=== PATIENT | female | born 1960 | race Caucasian/White ===

== ENCOUNTER 2016-07-16 15:06 | Emergency (ER) | payer MEDICARE ==
[2016-07-16] MEDS ORDERED: ANTIVERT 25 MG PO ONE (15:41)
[2016-07-16] MEDS ORDERED: Sodium Chloride 0.9% 1000 ML 1,000 ML IV SCH (15:45)
--- NOTE | 2016-07-16 15:45 | ERPHSYRPT ---
- History of Present Illness Time Seen by Provider: 07/16/16 15:30 Historian: patient Exam Limitations: clinical condition Patient Subjective Stated Complaint: upper bilateral arm pain, dizziness and blurred vision for three days Triage Nursing Assessment: ambulated to room per self. skin w/d, color normal, resp easy. pt a/o times three, suarez without difficulty. 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 Physician History: PATIENT COMPLAINS OF DIZZINESS X 3 DAYS UPON AMBULATION, BLURRED VISION FOR 1 MONTH, ASSOCIATED WITH BILATERAL ARM PAIN. DENIES HEADACHE, NECK PAIN, CHEST PAIN OR DYSPNEA. Timing/Duration: day(s) Activities at Onset: none Quality: aching Location: other ([facility]) Chest Pain Radiation: no radiation Severity of Pain-Max: mild Severity of Pain-Current: mild Modifying Factors: Improves With: nothing Associated Symptoms: dizziness, other (BLURRED VISION) Prior Chest Pain/Cardiac Workup: no prior chest pain Nitro Today/Relief: no nitro taken today Aspirin Treatment Today: 81 mg x 4, provided by ED Allergies/Adverse Reactions: penicillin G Allergy (Intermediate, Verified 07/16/16 15:29) Hives sulfamethoxazole [From Bactrim] Allergy (Intermediate, Verified 07/16/16 15:29) Hives trimethoprim [From Bactrim] Allergy (Intermediate, Verified 07/16/16 15:29) Hives Home Medications: Hydrochlorothiazide 25 mg [hydroDIURIL 25 MG] 12.5 mg PO BID 06/18/16 [ History] Aspirin [[place] Aspirin] 81 mg PO 07/16/16 [History] Clonazepam 0.5 mg [Klonopin 0.5 MG] 0.5 mg PO HS 07/16/16 [History] Duloxetine HCl [Cymbalta] 60 mg PO TID 07/16/16 [History] Gabapentin [Gralise] 600 mg PO BID 07/16/16 [History] Hx Tetanus, Diphtheria Vaccination/Date Given: No Hx Influenza Vaccination/Date Given: No Hx Pneumococcal Vaccination/Date Given: No Immunizations Up to Date: No - Review of Systems Constitutional: No Symptoms, No Fever, No Chills Eyes: Double Vision Ears, Nose, & Throat: No Symptoms Respiratory: No Symptoms, No Cough, No Dyspnea Cardiac: No Symptoms, No Chest Pain, No Edema, No Syncope Abdominal/Gastrointestinal: No Symptoms, No Abdominal Pain, No Nausea, No Vomiting, No Diarrhea Genitourinary Symptoms: No Symptoms, No Dysuria Musculoskeletal: Arthralgias, No Back Pain, No Neck Pain Skin: No Rash Neurological: Dizziness, No Focal Weakness, No Sensory Changes Psychological: No Symptoms Endocrine: No Symptoms All Other Systems: Reviewed and Negative - Past Medical History Pertinent Past Medical History: Yes Cardiac History: Hypertension Musculoskeletal History: Arthritis GI Medical History: Gallbladder Disease, Irritable Bowel Psycho-Social History: Depression Female Reproductive Disorders: Breast Cancer - Past Surgical History Past Surgical History: Yes Gastrointestinal: Cholecystectomy Female Surgical History: Tubal Ligation, Lumpectomy - Social History Smoking Status: Current every day smoker How long have you smoked: YRS Exposure to second hand smoke: No Drug Use: none Patient Lives Alone: No - Nursing Vital Signs Temperature: 97.7 F Temperature Source: Oral Pulse Rate: 121 Respiratory Rate: 18 Pain Intensity: 8 - Physical Exam General Appearance: no apparent distress, alert Eye Exam: PERRL/EOMI, eyes nml inspection Ears, Nose, Throat Exam: normal ENT inspection, moist mucous membranes Neck Exam: normal inspection, non-tender, supple, full range of motion Respiratory Exam: normal breath sounds, lungs clear, No respiratory distress Cardiovascular Exam: regular rate/rhythm, normal heart sounds, tachycardia Gastrointestinal/Abdomen Exam: soft, normal bowel sounds, No tenderness, No mass Back Exam: normal inspection, No CVA tenderness, No vertebral tenderness Extremity Exam: normal inspection, normal range of motion Neurologic Exam: alert, oriented x 3, cooperative, normal mood/affect, sensation nml, No motor deficits Skin Exam: normal color, warm, dry SpO2 Interpretation: normal SpO2: 100 Oxygen Delivery: Room Air - Course EKG Interpreted by Me: RATE, Sinus Tach, NORMAL AXIS - Radiology Exams Chest X-ray Interpretation: Discussed w/ radiologist, Negative - CT Exams Head CT Interpretation: Discussed w/radiologist, No/Intracranial Hemorrhag Ordered Tests: Active Orders 24 hr Category Date Time Status Photographic Aide STAT Care 07/16/16 15:41 Active EKG-ER Only STAT Care 07/16/16 15:41 Active IV Insertion STAT Care 07/16/16 15:48 Active Orthostatic Vital Signs STAT Care 07/16/16 15:41 Active Visual Acuity STAT Care 07/16/16 15:44 Active CHEST 1 VIEW (PORTABLE) Stat Exams 07/16/16 15:41 Completed HEAD WITHOUT CONTRAST [CT] Stat Exams 07/16/16 15:41 Completed CBC W DIFF Stat Lab 07/16/16 15:40 Completed CMP Stat Lab 07/16/16 15:40 Completed MAGNESIUM Stat Lab 07/16/16 15:40 Completed PT INR [PROTIME WITH INR] Stat Lab 07/16/16 15:40 Completed TROPONIN Stat Lab 07/16/16 15:40 Completed UA Stat Lab 07/16/16 16:40 Completed Urine Triage Profile Stat Lab 07/16/16 16:40 Completed Medication Summary Generic Name Dose Route Start Last Admin Trade Name Freq PRN Reason Stop Dose Admin Sodium Chloride 1,000 mls @ 200 mls/hr 07/16/16 15:45 07/16/16 15:59 Sodium Chloride 0.9% 1000 Ml IV 08/15/16 15:44 200 mls/hr .Q5H ALMAZ Administration Sodium Chloride 1,000 mls @ 500 mls/hr 07/16/16 17:22 07/16/16 17:38 Sodium Chloride 0.9% 1000 Ml IV 07/16/16 19:21 500 mls/hr .Q2H STA Administration Nitroglycerin 0.4 mg 07/16/16 15:58 07/16/16 16:08 Nitrostat 0.4 Mg Tablet SL 08/15/16 15:57 0.4 mg PRN PRN Administration CHEST PAIN Discontinued Medications Generic Name Dose Route Start Last Admin Trade Name Freq PRN Reason Stop Dose Admin Aspirin 324 mg 07/16/16 15:59 07/16/16 16:07 Baby Aspirin 81 Mg Chew PO 07/16/16 16:00 324 mg STAT ONE Administration Sodium Chloride Confirm 07/16/16 15:47 Sodium Chloride 0.9% 1000 Ml Administered 07/16/16 15:48 Dose 1,000 mls @ ud .ROUTE .STK-MED ONE Sodium Chloride Confirm 07/16/16 17:33 Sodium Chloride 0.9% 1000 Ml Administered 07/16/16 17:34 Dose 1,000 mls @ ud .ROUTE .STK-MED ONE Magnesium Sulfate 1 gm 07/16/16 16:38 07/16/16 16:46 Magnesium Sulfate 1 Gm/2 Ml Vial IV 07/16/16 16:39 1 gm STAT ONE Administration Magnesium Sulfate Confirm 07/16/16 16:43 Magnesium Sulfate 1 Gm/2 Ml Vial Administered 07/16/16 16:44 Dose 1 gm .ROUTE .STK-MED ONE Meclizine HCl 25 mg 07/16/16 15:41 07/16/16 15:59 Antivert 25 Mg PO 07/16/16 15:42 25 mg STAT ONE Administration Meclizine HCl Confirm 07/16/16 15:47 Antivert 25 Mg Administered 07/16/16 15:48 Dose 25 mg .ROUTE .[facility] ONE Lab/Rad Data: Laboratory Result Diagrams 07/16/16 15:40 07/16/16 15:40 Laboratory Results 07/16/16 07/16/16 07/16/16 Range/Units 16:40 16:40 15:40 WBC (4.0-10.5) K/mm3 RBC (4.1-5.4) M/mm3 Hgb (12.0-16.0) gm/dl Hct (35-47) % MCV (78-100) fl MCH (26-32) pg MCHC (32-36) g/dl RDW (11.5-14.0) % Plt Count (150-450) K/mm3 MPV (6-9.5) fl Gran % (36.0-66.0) % Lymphocytes % (24.0-44.0) % Monocytes % (0.0-12.0) % Eosinophils % (0.00-5.0) % Basophils % (0.0-0.4) % Basophils # (0-0.4) INR 0.98 (0.8-3.0) Sodium (136-145) mEq/L Potassium (3.5-5.1) mEq/L Chloride (98-107) mEq/L Carbon Dioxide (21-32) mEq/L Anion Gap (5-15) MEQ/L BUN (9-20) mg/dL Creatinine (0.55-1.30) mg/dl Estimated GFR ML/MIN Glucose (70-110) MG/DL Calcium (8.5-10.1) mg/dL Magnesium (1.8-2.4) mg/dL Total Bilirubin (0.2-1.0) mg/dL AST (15-37) U/L ALT (12-78) U/L Alkaline Phosphatase (46-116) U/L Troponin I (0.000-0.056) ng/ml Serum Total Protein (6.4-8.2) gm/dL Albumin (3.4-5.0) g/dL Ur Collection Type VOID Urine Color YELLOW (YELLOW) Urine Appearance CLEAR (CLEAR) Urine pH 7.0 (5-6) Ur Specific [place] 1.015 (1.005-1.025) Urine Protein NEGATIVE (Negative) Urine Glucose (UA) NEGATIVE (NEGATIVE) mg/dL Urine Ketones NEGATIVE (NEGATIVE) Urine Nitrite NEGATIVE (NEGATIVE) Urine Bilirubin NEGATIVE (NEGATIVE) Urine Urobilinogen 0.2 (0-1) mg/dL Urine WBC (Auto) NEGATIVE (NEGATIVE) Urine RBC (Auto) NEGATIVE (0-5) Ruben/ul Urine Opiates Level NEG. (NEGATIVE) Ur Methadone NEG. (NEGATIVE) Urine Barbiturates NEG. (NEGATIVE) Ur Phencyclidine (PCP) NEG. (NEGATIVE) Urine Amphetamine NEG. (NEGATIVE) U Benzodiazepine Level NEG. (NEGATIVE) Urine Cocaine NEG. (NEGATIVE) Urine Marijuana (THC) NEG. (NEGATIVE) Specimen Received 07/16/16 1640 07/16/16 07/16/16 Range/Units 15:40 15:40 WBC 8.5 (4.0-10.5) K/mm3 RBC 4.89 (4.1-5.4) M/mm3 Hgb 14.7 (12.0-16.0) gm/dl Hct 43.6 (35-47) % MCV 89.2 (78-100) fl MCH 30.1 (26-32) pg MCHC 33.7 (32-36) g/dl RDW 12.8 (11.5-14.0) % Plt Count 326 (150-450) K/mm3 MPV 10.5 H (6-9.5) fl Gran % 56.3 (36.0-66.0) % Lymphocytes % 33.3 (24.0-44.0) % Monocytes % 7.8 (0.0-12.0) % Eosinophils % 2.1 (0.00-5.0) % Basophils % 0.5 (0.0-0.4) % Basophils # 0.04 (0-0.4) INR (0.8-3.0) Sodium 143 (136-145) mEq/L Potassium 3.9 (3.5-5.1) mEq/L Chloride 103 (98-107) mEq/L Carbon Dioxide 29.1 (21-32) mEq/L Anion Gap 14.6 (5-15) MEQ/L BUN 10 (9-20) mg/dL Creatinine 0.58 (0.55-1.30) mg/dl Estimated GFR > 60 ML/MIN Glucose 91 (70-110) MG/DL Calcium 9.7 (8.5-10.1) mg/dL Magnesium 1.4 L (1.8-2.4) mg/dL Total Bilirubin 0.4 (0.2-1.0) mg/dL AST 15 (15-37) U/L ALT 10 L (12-78) U/L Alkaline Phosphatase 82 (46-116) U/L Troponin I < 0.017 (0.000-0.056) ng/ml Serum Total Protein 7.9 (6.4-8.2) gm/dL Albumin 4.3 (3.4-5.0) g/dL Ur Collection Type Urine Color (YELLOW) Urine Appearance (CLEAR) Urine pH (5-6) Ur Specific [place] (1.005-1.025) Urine Protein (Negative) Urine Glucose (UA) (NEGATIVE) mg/dL Urine Ketones (NEGATIVE) Urine Nitrite (NEGATIVE) Urine Bilirubin (NEGATIVE) Urine Urobilinogen (0-1) mg/dL Urine WBC (Auto) (NEGATIVE) Urine RBC (Auto) (0-5) Ruben/ul Urine Opiates Level (NEGATIVE) Ur Methadone (NEGATIVE) Urine Barbiturates (NEGATIVE) Ur Phencyclidine (PCP) (NEGATIVE) Urine Amphetamine (NEGATIVE) U Benzodiazepine Level (NEGATIVE) Urine Cocaine (NEGATIVE) Urine Marijuana (THC) (NEGATIVE) Specimen Received - Progress Progress: improved, re-examined Progress Note: 07/16/16 16:51 PATIENT GIVEN ASA 81MG X 4, NTG SL 0.4MG, MG SULFATE 1GM IVPB FOR MAGNESIUM-1.4 , ANTIVERT 25MG ORALLY. Counseled pt/family regarding: lab results, diagnosis, need for follow-up, rad results - Departure Time of Disposition: 18:10 Departure Disposition: Home Clinical Impression: ACUTE LABYINTHITIS, HYPOMAGNESEMIA Condition: Stable Critical Care Time: No Referrals: Provider,Unknown [Primary Care Provider] - Additional Instructions: BEGIN ANTIVERT 25MG EVERY 8 HOURS FOR DIZZINESS. MAGNESIUM OXIDE 400MG TWICE DAILY FOR 1 WEEK. CONSULT YOUR FAMILY PHYSICIAN FOR EVALUATION IN 1 WEEK.
[2016-07-16] MEDS ORDERED: ANTIVERT 25 MG ONE (15:47)
[2016-07-16] MEDS ORDERED: Sodium Chloride 0.9% 1000 ML 1,000 ML ONE (15:47)
[2016-07-16 15:49] LABS: BASOPHIL % 0.5 % (0.0-0.4); Eosinophil % 2.1 % (0.00-5.0); Granulocytes % 56.3 % (36.0-66.0); Lymphocytes % 33.3 % (24.0-44.0); Mean Cell Volume 89.2 fl (78-100); Mean Corpuscular Hemoglobin 30.1 pg (26-32); Mean Platelet Volume 10.5 fl (6-9.5); Monocytes % 7.8 % (0.0-12.0); Platelet Count 326 K/mm3 (150-450); Red Blood Count 4.89 M/mm3 (4.1-5.4); Red Cell Distribution Width 12.8 % (11.5-14.0); White Blood Count 8.5 K/mm3 (4.0-10.5)
[2016-07-16] MEDS ORDERED: Nitrostat 0.4 MG (ED) SL ONE (15:58)
[2016-07-16] MEDS ORDERED: Nitrostat 0.4 MG Tablet SL PRN (15:58)
[2016-07-16] MEDS ORDERED: BABY ASPIRIN 81 MG CHEW PO ONE (15:59)
[2016-07-16 16:06] LABS: INR 0.98 (0.8-3.0)
[2016-07-16 16:29] LABS: ALBUMIN 4.3 g/dL (3.4-5.0); ALKALINE PHOSPHATASE 82 U/L (46-116); ANION GAP 14.6 MEQ/L (5-15); BILIRUBIN,TOTAL 0.4 mg/dL (0.2-1.0); BLOOD UREA NITROGEN 10 mg/dL (9-20); CHLORIDE 103 mEq/L (98-107); Carbon Dioxide 29.1 mEq/L (21-32); Glucose 91 MG/DL (70-110); MAGNESIUM 1.4 mg/dL (1.8-2.4); Potassium 3.9 mEq/L (3.5-5.1); SGOT/AST 15 U/L (15-37); SGPT/ALT 10 U/L (12-78); SODIUM 143 mEq/L (136-145); Total Protein 7.9 gm/dL (6.4-8.2)
--- NOTE | 2016-07-16 16:29 | XRAY ---
Indication: Blurred vision and dizziness. Remote fall June 15, 2016. Multiple contiguous axial images obtained through the head without contrast. Comparison: None Normal appearing brain parenchyma, ventricles, and bony calvarium. Visualized paranasal sinuses and mastoid air cells are pneumatized and clear. Impression: Normal CT head without contrast exam. CTDI 68.65
[2016-07-16 16:31] LABS: TROPONIN < 0.017 ng/ml (0.000-0.056)
--- NOTE | 2016-07-16 16:32 | XRAY ---
Indication: Dizziness and blurred vision. Comparison: December 06, 2008 Portable chest remains clear. Heart is not enlarged. Vascularity normal. Bony thorax intact. Surgical clips again in the right breast and right axilla Impression: Stable nonacute chest with chronic features.
[2016-07-16] MEDS ORDERED: Magnesium Sulfate 1 GM/2 ML VIAL IV ONE (16:38)
[2016-07-16] MEDS ORDERED: Magnesium Sulfate 1 GM/2 ML VIAL ONE (16:43)
[2016-07-16 16:52] LABS: COMPLETE URINE MICROSCOPIC? NO; Collection Type VOID
[2016-07-16] MEDS ORDERED: Sodium Chloride 0.9% 1000 ML 0 ML ONE (17:33)
[2016-07-16] MEDS: Sodium Chloride 0.9% 1000 ML 1,000 ML IV STA ×2 (17:34→17:38)
[2016-07-16 18:03] VITALS: BP 106/64
[2016-07-16 18:07] VITALS: PULSE 121; O2SAT 100
== END 2016-07-16 18:15 | disposition home or self-care (01) ==
LOC: ED 15:06
DX: H83.09 Labyrinthitis, unspecified ear (principal); E83.42 Hypomagnesemia; R42 Dizziness and giddiness; M79.622 Pain in left upper arm; M79.621 Pain in right upper arm; H53.8 Other visual disturbances; Z79.899 Other long term (current) drug therapy
CPT/HCPCS: 36000; 36415; 70450; 71010; 80053; 80307; 81002; 83735; 84484; 85025; 85610; 93005; 93041; 96375; 99284; J3475

== ENCOUNTER 2016-09-28 21:45 | Emergency (ER) | payer MEDICARE ==
[2016-09-28] MEDS ORDERED: Phenergan 25 MG INJ IV ONE (22:35)
[2016-09-28] MEDS ORDERED: Hydromorphone 1 mg/ml Ampule IV ONE (22:35)
[2016-09-28] MEDS ORDERED: Phenergan 25 MG INJ ONE (22:41)
[2016-09-28] MEDS ORDERED: Hydromorphone 1 mg/ml Ampule ONE (22:42)
--- NOTE | 2016-09-28 22:42 | ERPHSYRPT ---
- History of Present Illness Time Seen by Provider: 09/28/16 22:17 Source: patient Exam Limitations: no limitations Patient Subjective Stated Complaint: Pt sts left arm tingling and numbness for 1 month. Sts she has appt with sports medicine on Wednesday. Sts that she planted henderson today and now she has increased tingling in left upper arm and shoulder radiating into left side of neck. Denies chest pain, denies shortness of breath, denies other symptoms or problems. Sts she took 2 of her old clonazepam without relief tonight. Triage Nursing Assessment: Pt alert, oriented, answers all questions appropriately. Skin p/w/d, resps non-labored. Pt ambulatory to tx room steady gait noted. + radial pulses noted. Unable to assess cap refill due to neon pink nail croatian. Limited ROM due to pain. Physician History: ABOUT 1 MONTH AGO PT SLIPPED AND FELL ON THE RAMP GOING UP TO HER FRONT DOOR WITH RESULTANT PAIN IN THE LEFT SHOULDER AND ARM. TODAY PT HAD WEAKNESS, SWELLING, TINGLING AND NUMBNESS OF THE LEFT HAND WITH PAIN IN THE LEFT SHOULDER , ARM AND NECK. PT DENIES CHEST PAIN, VOMITING, FEVER; ADMITS TO DIARRHEA FOR THE PAST 3 DAYS. Allergies/Adverse Reactions: penicillin G Allergy (Intermediate, Verified 09/28/16 22:08) Hives sulfamethoxazole [From Bactrim] Allergy (Intermediate, Verified 09/28/16 22:08) Hives trimethoprim [From Bactrim] Allergy (Intermediate, Verified 09/28/16 22:08) Hives Home Medications: Hydrochlorothiazide 25 mg [hydroDIURIL 25 MG] 12.5 mg PO BID 06/18/16 [ History] Aspirin [[place] Aspirin] 81 mg PO 07/16/16 [History] Clonazepam 0.5 mg [Klonopin 0.5 MG] 0.5 mg PO HS 07/16/16 [History] Duloxetine HCl [Cymbalta] 60 mg PO TID 07/16/16 [History] Gabapentin [Gralise] 600 mg PO BID 07/16/16 [History] Hx Tetanus, Diphtheria Vaccination/Date Given: No Hx Influenza Vaccination/Date Given: No Hx Pneumococcal Vaccination/Date Given: No Immunizations Up to Date: Yes - Review of Systems Constitutional: No Fever Cardiac: No Chest Pain Abdominal/Gastrointestinal: Diarrhea, No Vomiting Musculoskeletal: Neck Pain, Other (LEFT UPPER EXTREMITY PAIN; SWELLING, WEAKNESS , TINGLING AND NUMBNESS IN THE LEFT HAND TODAY.) Neurological: Sensory Changes (TINGLING/NUMBNESS IN THE LEFT HAND TODAY) Endocrine: No Excessive Sweating All Other Systems: Reviewed and Negative - Past Medical History Pertinent Past Medical History: Yes Cardiac History: Hypertension Musculoskeletal History: Arthritis GI Medical History: Gallbladder Disease, Irritable Bowel Psycho-Social History: Depression Female Reproductive Disorders: Breast Cancer - Past Surgical History Past Surgical History: Yes Gastrointestinal: Cholecystectomy Female Surgical History: Tubal Ligation, Lumpectomy - Social History Smoking Status: Current every day smoker How long have you smoked: 40 Exposure to second hand smoke: No Drug Use: none Patient Lives Alone: No - Nursing Vital Signs Nursing Vital Signs: Initial Vital Signs Temperature 98.4 F Temperature Source Oral Pulse Rate 94 Respiratory Rate 16 Blood Pressure [] 110/54 Pain Intensity 8 - Physical Exam General Appearance: alert, anxiety Eye Exam: PERRL/EOMI Ears, Nose, Throat Exam: TMs normal, pharynx normal, dry mucous membranes Neck Exam: normal inspection Respiratory Exam: lungs clear Cardiovascular Exam: tachycardia Gastrointestinal/Abdomen Exam: soft, normal bowel sounds Back Exam: normal range of motion Extremity Exam: other (ABDUCTION OF THE LEFT SHOULDER LIMITED TO ~ 80% FULL; MILD TENDERNESS OF THE LEFT ARM; HOMEOPATHIC DOCTOR STRENGTH OF THE LEFT HAND IS +4/+5 AND THE RIGHT HAND IS +5/+5(PT IS LEFT HANDED); SENSATION INTACT FOR ALL EXTREMITIES ; ROM FULL FOR LOWER AND RIGHT UPPER EXTREMITIES.) Neurologic Exam: alert, cooperative, No normal mood/affect (ANXIOUS) Skin Exam: warm, dry SpO2 Interpretation: normal SpO2: 97 Oxygen Delivery: Room Air - Course Nursing assessment & vital signs reviewed: Yes EKG Interpreted by Me: RATE (93), Sinus Rhythm, NORMAL AXIS, NORMAL INTERVALS - Radiology Exams Chest X-ray Interpretation: Interpreted by me, No Pneumonia Left Hand X-ray Interpretation: Interpreted by me, No Fracture Left Forearm X-ray Interpretation: Interpreted by me, No Fracture Left Humerus X-ray Interpretation: Interpreted by me, No Fracture Left Shoulder X-ray Interpretation: Teleradiologist Report (NO ACUTE FINDINGS. NO EVIDENCE OF FRACTURE FOLLOWING REPORTED TRAUMA 1 MONTH AGO.) - CT Exams Head CT Interpretation: Tele-radiologist Report (SINUS DISEASE. NO INTRACRANIAL HEMORRHAGE, FRACTURE OR OTHER POST TRAUMATIC INJURY.) Cervical Spine CT Interpretation: Tele-radiologist Report (DEGENERATIVE CHANGES WITH MODERATE TO SEVERE LEFT NEUROFORAMINAL STENOSIS AT C5-6 AND C6-7. NO FRACTURE, DISLOCATION OR OTHER ACUTE CRERVICAL SPINE ABNORMALITY IS SEEN.) Ordered Tests: Active Orders 24 hr Category Date Time Status Information Security Engineer STAT Care 09/28/16 22:31 Active EKG-ER Only STAT Care 09/28/16 22:31 Active IV Insertion STAT Care 09/28/16 22:31 Active Pulse Oximetry (ED) STAT Care 09/28/16 22:31 Active CERVICAL SPINE WO CONTRAST [CT] Stat Exams 09/28/16 22:29 Ordered CHEST 2 VIEWS (PA AND LAT) Stat Exams 09/28/16 22:32 Ordered FOREARM Stat Exams 09/28/16 22:34 Ordered HAND (MINIMUM 3 VIEWS) Stat Exams 09/28/16 22:34 Ordered HEAD WITHOUT CONTRAST [CT] Stat Exams 09/28/16 22:29 Ordered HUMERUS Stat Exams 09/28/16 22:34 Ordered SHOULDER Stat Exams 09/28/16 22:35 Ordered AMYLASE Stat Lab 09/28/16 23:01 Completed CBC W DIFF Stat Lab 09/28/16 23:01 Completed CMP Stat Lab 09/28/16 23:01 Completed LIPASE Stat Lab 09/28/16 23:01 Completed MAGNESIUM Stat Lab 09/28/16 23:01 Completed TROPONIN Q3H Lab 09/28/16 23:01 Completed TROPONIN Q3H Lab 09/29/16 01:45 Ordered TROPONIN Q3H Lab 09/29/16 04:45 Ordered TROPONIN Q3H Lab 09/29/16 07:45 Ordered TROPONIN Q3H Lab 09/29/16 10:45 Ordered UA Stat Lab 09/28/16 23:01 Completed Urine Triage Profile Stat Lab 09/28/16 23:01 Completed Medication Summary Generic Name Dose Route Start Last Admin Trade Name Freq PRN Reason Stop Dose Admin Sodium Chloride 1,000 mls @ 100 mls/hr 09/28/16 22:45 09/28/16 22:45 Sodium Chloride 0.9% 1000 Ml IV 10/28/16 22:44 100 mls/hr .Q10H ALMAZ Administration Magnesium Oxide 400 mg 09/29/16 10:00 Mag-Ox 400 PO 10/29/16 09:59 BID ALMAZ Discontinued Medications Generic Name Dose Route Start Last Admin Trade Name Abdelrahman PRN Reason Stop Dose Admin Hydromorphone HCl 0.5 mg 09/28/16 22:35 09/28/16 22:43 Hydromorphone 1 Mg/Ml Ampule IV 09/28/16 22:36 0.5 mg STAT ONE Administration Hydromorphone HCl Confirm 09/28/16 22:42 Hydromorphone 1 Mg/Ml Ampule Administered 09/28/16 22:43 Dose 1 mg .ROUTE .STK-MED ONE Sodium Chloride 1,000 mls @ 999 mls/hr 09/28/16 22:47 09/28/16 23:00 Sodium Chloride 0.9% 1000 Ml IV 09/28/16 23:47 999 mls/hr .Q1H1M STA Administration Promethazine HCl 6.25 mg 09/28/16 22:35 09/28/16 22:43 Phenergan 25 Mg Inj IV 09/28/16 22:36 6.25 mg STAT ONE Administration Promethazine HCl Confirm 09/28/16 22:41 Phenergan 25 Mg Inj Administered 09/28/16 22:42 Dose 25 mg .ROUTE .STK-MED ONE Lab/Rad Data: Laboratory Result Diagrams 09/28/16 23:01 09/28/16 23:01 Laboratory Results 09/28/16 09/28/16 09/28/16 Range/Units 23:01 23:01 23:01 WBC (4.0-10.5) K/mm3 RBC (4.1-5.4) M/mm3 Hgb (12.0-16.0) gm/dl Hct (35-47) % MCV (78-100) fl MCH (26-32) pg MCHC (32-36) g/dl RDW (11.5-14.0) % Plt Count (150-450) K/mm3 MPV (6-9.5) fl Gran % (36.0-66.0) % Lymphocytes % (24.0-44.0) % Monocytes % (0.0-12.0) % Eosinophils % (0.00-5.0) % Basophils % (0.0-0.4) % Basophils # (0-0.4) Sodium (136-145) mEq/L Potassium (3.5-5.1) mEq/L Chloride (98-107) mEq/L Carbon Dioxide (21-32) mEq/L Anion Gap (5-15) MEQ/L BUN (9-20) mg/dL Creatinine (0.55-1.30) mg/dl Estimated GFR ML/MIN Glucose (70-110) MG/DL Calcium (8.5-10.1) mg/dL Magnesium (1.8-2.4) mg/dL Total Bilirubin (0.2-1.0) mg/dL AST (15-37) U/L ALT (12-78) U/L Alkaline Phosphatase (46-116) U/L Troponin I < 0.017 (0.000-0.056) ng/ml Serum Total Protein (6.4-8.2) gm/dL Albumin (3.4-5.0) g/dL Amylase (25-115) U/L Lipase (73-393) U/L Ur Collection Type CCMS Urine Color YELLOW (YELLOW) Urine Appearance CLEAR (CLEAR) Urine pH 7.0 (5-6) Ur Specific [place] 1.010 (1.005-1.025) Urine Protein NEGATIVE (Negative) Urine Glucose (UA) NEGATIVE (NEGATIVE) mg/dL Urine Ketones NEGATIVE (NEGATIVE) Urine Nitrite NEGATIVE (NEGATIVE) Urine Bilirubin NEGATIVE (NEGATIVE) Urine Urobilinogen 0.2 (0-1) mg/dL Urine WBC (Auto) NEGATIVE (NEGATIVE) Urine RBC (Auto) NEGATIVE (0-5) Ruben/ul Urine Opiates Level NEG. (NEGATIVE) Ur Methadone NEG. (NEGATIVE) Urine Barbiturates NEG. (NEGATIVE) Ur Phencyclidine (PCP) NEG. (NEGATIVE) Urine Amphetamine NEG. (NEGATIVE) U Benzodiazepine Level NEG. (NEGATIVE) Urine Cocaine NEG. (NEGATIVE) Urine Marijuana (THC) NEG. (NEGATIVE) Specimen Received 09-28-16 [id number] 09/28/16 09/28/16 Range/Units 23:01 23:01 WBC 10.2 (4.0-10.5) K/mm3 RBC 4.64 (4.1-5.4) M/mm3 Hgb 14.1 (12.0-16.0) gm/dl Hct 41.6 (35-47) % MCV 89.7 (78-100) fl MCH 30.4 (26-32) pg MCHC 33.9 (32-36) g/dl RDW 13.7 (11.5-14.0) % Plt Count 323 (150-450) K/mm3 MPV 10.1 H (6-9.5) fl Gran % 54.0 (36.0-66.0) % Lymphocytes % 34.9 (24.0-44.0) % Monocytes % 8.5 (0.0-12.0) % Eosinophils % 2.3 (0.00-5.0) % Basophils % 0.3 (0.0-0.4) % Basophils # 0.03 (0-0.4) Sodium 146 H (136-145) mEq/L Potassium 3.7 (3.5-5.1) mEq/L Chloride 106 (98-107) mEq/L Carbon Dioxide 30.0 (21-32) mEq/L Anion Gap 13.4 (5-15) MEQ/L BUN 7 L (9-20) mg/dL Creatinine 0.82 (0.55-1.30) mg/dl Estimated GFR > 60 ML/MIN Glucose 75 (70-110) MG/DL Calcium 9.3 (8.5-10.1) mg/dL Magnesium 1.7 L (1.8-2.4) mg/dL Total Bilirubin 0.3 (0.2-1.0) mg/dL AST 14 L (15-37) U/L ALT 16 (12-78) U/L Alkaline Phosphatase 84 (46-116) U/L Troponin I (0.000-0.056) ng/ml Serum Total Protein 7.5 (6.4-8.2) gm/dL Albumin 4.0 (3.4-5.0) g/dL Amylase 99 (25-115) U/L Lipase 242 (73-393) U/L Ur Collection Type Urine Color (YELLOW) Urine Appearance (CLEAR) Urine pH (5-6) Ur Specific [place] (1.005-1.025) Urine Protein (Negative) Urine Glucose (UA) (NEGATIVE) mg/dL Urine Ketones (NEGATIVE) Urine Nitrite (NEGATIVE) Urine Bilirubin (NEGATIVE) Urine Urobilinogen (0-1) mg/dL Urine WBC (Auto) (NEGATIVE) Urine RBC (Auto) (0-5) Ruben/ul Urine Opiates Level (NEGATIVE) Ur Methadone (NEGATIVE) Urine Barbiturates (NEGATIVE) Ur Phencyclidine (PCP) (NEGATIVE) Urine Amphetamine (NEGATIVE) U Benzodiazepine Level (NEGATIVE) Urine Cocaine (NEGATIVE) Urine Marijuana (THC) (NEGATIVE) Specimen Received - Departure Time of Disposition: 00:55 Departure Disposition: Home Clinical Impression: LEFT UPPER EXTREMITY PAIN, LEFT HAND NUMBNESS/WEAKNESS, SINUSITIS, MILD HYPOMAGNESEMIA Condition: Fair Critical Care Time: No Referrals: DOCTOR,NO FAMILY [Primary Care Provider] - Instructions: Shoulder Pain Additional Instructions: FOLLOW UP WITH PRIVATE DOCTOR TOMORROW. WEAR LEFT ARM SLING FOR COMFORT. DO NOT USE LEFT UPPER EXTREMITY UNTIL YOUR DOCTOR IS SEEN. Prescriptions: Naproxen [Naprosyn] 500 mg PO Q12H PRN PRN #20 tablet PRN Reason: Pain Azithromycin 250 mg [Zithromax 250 MG TABLET] 250 mg PO ZPACK #6 tablet
[2016-09-28] MEDS ORDERED: Sodium Chloride 0.9% 1000 ML 1,000 ML ONE (22:44)
[2016-09-28] MEDS ORDERED: Sodium Chloride 0.9% 1000 ML 1,000 ML IV SCH (22:45)
[2016-09-28] MEDS ORDERED: Sodium Chloride 0.9% 1000 ML 1,000 ML IV STA (22:47)
[2016-09-28 23:07] LABS: BASOPHIL % 0.3 % (0.0-0.4); Eosinophil % 2.3 % (0.00-5.0); Lymphocytes % 34.9 % (24.0-44.0); Mean Cell Volume 89.7 fl (78-100); Mean Corpuscular Hemoglobin 30.4 pg (26-32); Mean Platelet Volume 10.1 fl (6-9.5); Monocytes % 8.5 % (0.0-12.0); Platelet Count 323 K/mm3 (150-450); Red Blood Count 4.64 M/mm3 (4.1-5.4); Red Cell Distribution Width 13.7 % (11.5-14.0); White Blood Count 10.2 K/mm3 (4.0-10.5)
[2016-09-28 23:27] LABS: COMPLETE URINE MICROSCOPIC? NO; Collection Type CCMS
[2016-09-28 23:29] LABS: ALKALINE PHOSPHATASE 84 U/L (46-116); ANION GAP 13.4 MEQ/L (5-15); BILIRUBIN,TOTAL 0.3 mg/dL (0.2-1.0); BLOOD UREA NITROGEN 7 mg/dL (9-20); CHLORIDE 106 mEq/L (98-107); Glucose 75 MG/DL (70-110); LIPASE 242 U/L (73-393); MAGNESIUM 1.7 mg/dL (1.8-2.4); Potassium 3.7 mEq/L (3.5-5.1); SGOT/AST 14 U/L (15-37); SGPT/ALT 16 U/L (12-78); SODIUM 146 mEq/L (136-145); Total Protein 7.5 gm/dL (6.4-8.2)
[2016-09-29] MEDS ORDERED: MAG-OX 400 ONE (00:59)
[2016-09-29] MEDS ORDERED: Zithromax 250 MG TABLET PO ONE (01:01)
[2016-09-29] MEDS ORDERED: Zithromax 250 MG TABLET ONE (01:05)
[2016-09-29 01:26] VITALS: BP 131/70; PULSE 72; O2SAT 100
--- NOTE | 2016-09-29 09:00 | XRAY ---
Indication: Headache. Fall one month ago. Multiple contiguous axial images obtained through the head without contrast. Comparison: July 16, 2016. Again normal appearing brain parenchyma, ventricles, and bony calvarium. There is now moderate mucosal thickening of the visualized right maxillary sinus. Remaining visualized paranasal sinuses and mastoid air cells are pneumatized and clear. Impression: Again normal CT head without contrast exam. New paranasal sinus disease. Comment: Preliminary interpretation was made by [facility]. No discrepancy. CTDI 51.77
--- NOTE | 2016-09-29 09:02 | XRAY ---
Indication: Left neck pain radiating down left arm with numbness and tingling. Fall one month ago. Multiple contiguous axial images obtained through the cervical spine. Sagittal and coronal reformatted images obtained. Comparison: None Axial images again negative for acute fracture, suspicious bony lesions, or spinal canal stenosis. Stable mild C3-C4 and C5-C7 degenerative endplate spurring. Sagittal and coronal reformatted images again demonstrates straightening of the cervical lordosis, positional versus paraspinal muscular spasm. Stable minimal C3-C4 and C5-C7 disc space narrowing. No acute compression fracture, subluxation, or jumped facet. Normal-appearing craniocervical junction. Visualized noncontrasted soft tissues again demonstrates mild carotid calcifications, right greater than left. Base of the brain and lung apices are unremarkable. Impression: 1. Stable lordotic straightening, positional versus paraspinal spasm. Again negative for acute fracture/subluxation. 2. Stable multilevel degenerative changes. Comment: Preliminary interpretation was made by [facility]. No discrepancy. CT DI 102.58
--- NOTE | 2016-09-29 09:05 | XRAY ---
Indication: Left extremity weakness and numbness. Comparison: July 16, 2016. PA/lateral chest unchanged again demonstrating normal heart and lungs with mediastinal calcified nodes and right axilla/breast surgical clips. Bony thorax intact again with minimal degenerative changes. No new/acute findings. Impression: Stable nonacute chest with chronic features.
--- NOTE | 2016-09-29 09:07 | XRAY ---
Indication: Weakness and numbness. Fall one month ago. Comparison: None 2 views of the left humerus demonstrates mild AC degenerative arthropathy and a few axillary surgical clips. No other bony, articular, or soft tissue abnormalities.
--- NOTE | 2016-09-29 09:09 | XRAY ---
Indication: Weakness and numbness. Fall one month ago. Comparison: None 3 views of the left shoulder demonstrates mild AC degenerative arthropathy and a few axillary surgical clips. No other bony, articular, or soft tissue abnormalities. Comment: Preliminary interpretation was made by [facility]. No critical discrepancy.
--- NOTE | 2016-09-29 09:09 | XRAY ---
Indication: Weakness and numbness. Fall one month ago. Comparison: None 2 views of the left forearm obtained. No bony, articular, or soft tissue abnormalities.
--- NOTE | 2016-09-29 09:11 | XRAY ---
Indication: Weakness and numbness. Fall one month ago. Comparison: None 3 views of the left hand demonstrates mild degenerative changes of the first IP joint and base of the first metacarpal with heterotopic ossifications. Distal first metacarpal bony protuberance either developmental versus old injury. No other bony, articular, or soft tissue abnormalities.
[2016-09-29] MEDS ORDERED: MAG-OX 400 PO SCH (10:00)
== END 2016-09-29 01:26 | disposition home or self-care (01) ==
LOC: ED 21:45
DX: M79.622 Pain in left upper arm (principal); R20.0 Anesthesia of skin; R53.1 Weakness; J32.9 Chronic sinusitis, unspecified; E83.42 Hypomagnesemia; R29.898 Other symptoms and signs involving the musculoskeletal system; W18.30XA Fall on same level, unspecified, initial encounter
CPT/HCPCS: 36000; 36415; 70450; 71020; 72125; 73030; 73060; 73090; 73130; 80053; 80307; 81002; 82150; 83690; 83735; 84484; 85025; 93005; 93041; 96360; 96361; 96374; 96375; 99284; J1170; J2550; A9270-GY

== ENCOUNTER 2016-10-31 15:50 | Emergency (ER) | payer MEDICARE ==
[2016-10-31] MEDS ORDERED: TORAdol 30 mg Injection IM ONE (16:38)
[2016-10-31] MEDS ORDERED: TORAdol 30 mg Injection ONE (16:49)
[2016-10-31 17:28] VITALS: BP 130/66; PULSE 81; O2SAT 96
--- NOTE | 2016-10-31 17:47 | ERPHSYRPT ---
- History of Present Illness Time Seen by Provider: 10/31/16 16:34 Source: patient Patient Subjective Stated Complaint: PT REPORTS SHE WAS BEING CHASED BY A SNAKE WHEN SHE FELL-REPORTS FALLING-DENIES HITTING HEAD-DENIES LOC-REPORTS LEFT SHOULDER PAIN-RIGHT LOW BACK ET ARM PAIN Triage Nursing Assessment: PT PINK WARM ET [id number] OBVIOUS INJURY-NO ABRASIONS-NO CONTUSIONS NOTED Physician History: CC: fall Hx: 56 y/o patient who sees [place] [facility]. Has pain in left shoulder after falling. She recently finished physical therapy for rotator cuff. No surgery was done. She states has been taking naproxen at night. Pain moderate and worse with movement. ALL: PCN, Bactrim ILL: HTN Social: Disabled from [place] Occurred: yesterday Severity of Pain-Max: moderate Severity of Pain-Current: moderate Allergies/Adverse Reactions: penicillin G Allergy (Intermediate, Verified 10/31/16 16:14) Hives sulfamethoxazole [From Bactrim] Allergy (Intermediate, Verified 10/31/16 16:14) Hives trimethoprim [From Bactrim] Allergy (Intermediate, Verified 10/31/16 16:14) Hives Home Medications: Hydrochlorothiazide 25 mg [hydroDIURIL 25 MG] 12.5 mg PO BID 06/18/16 [ History] Clonazepam 0.5 mg [Klonopin 0.5 MG] 0.5 mg PO HS 07/16/16 [History] Duloxetine HCl [Cymbalta] 60 mg PO TID 07/16/16 [History] Gabapentin [Gralise] 600 mg PO BID 07/16/16 [History] Hx Tetanus, Diphtheria Vaccination/Date Given: No Hx Influenza Vaccination/Date Given: No Hx Pneumococcal Vaccination/Date Given: No Immunizations Up to Date: Yes - Review of Systems Constitutional: No Fever, No Chills Respiratory: No Cough, No Dyspnea Musculoskeletal: Joint Pain (left shoulder), No Back Pain, No Neck Pain Neurological: No Focal Weakness, No Headache, No Parasthesia - Past Medical History Pertinent Past Medical History: Yes Cardiac History: Hypertension Musculoskeletal History: Arthritis GI Medical History: Gallbladder Disease, Irritable Bowel Psycho-Social History: Depression Female Reproductive Disorders: Breast Cancer - Past Surgical History Past Surgical History: Yes Gastrointestinal: Cholecystectomy Female Surgical History: Tubal Ligation, Lumpectomy - Social History Smoking Status: Current every day smoker How long have you smoked: 40 Exposure to second hand smoke: No Drug Use: none Patient Lives Alone: No - Nursing Vital Signs Nursing Vital Signs: Initial Vital Signs Temperature 98.7 F Temperature Source Oral Pulse Rate 81 Respiratory Rate 22 Blood Pressure [Right Arm] 130/66 Pain Intensity 7 - Physical Exam General Appearance: alert Eyes, Ears, Nose, Throat Exam: moist mucous membranes Neck Exam: normal inspection, non-tender, supple Cardiovascular/Respiratory Exam: normal breath sounds, regular rate/rhythm Neuro/Tendon Exam: normal sensation, normal motor functions Mental Status Exam: alert, oriented x 3, cooperative Skin Exam: warm, dry SpO2 Interpretation: normal SpO2: 96 Oxygen Delivery: Room Air Comments: some pain in left shoulder with movement. Some point tender. No warmth or redness. No swelling or bruising. No elbow or right shoulder tenderness. - Course Nursing assessment & vital signs reviewed: Yes - Radiology Exams left shoulder X-ray Interpretation: Reviewed by me, Negative Ordered Tests: Active Orders 24 hr Category Date Time Status Cold Application STAT Care 10/31/16 16:38 Active Sling Application STAT Care 10/31/16 16:38 Active SHOULDER Stat Exams 10/31/16 16:38 Taken Medication Summary Discontinued Medications Generic Name Dose Route Start Last Admin Trade Name Abdelrahman PRN Reason Stop Dose Admin Ketorolac Tromethamine 60 mg 10/31/16 16:38 10/31/16 16:51 Toradol 30 Mg Injection IM 10/31/16 16:39 60 mg STAT ONE Administration Ketorolac Tromethamine Confirm 10/31/16 16:49 Toradol 30 Mg Injection Administered 10/31/16 16:50 Dose 60 mg .ROUTE .STK-MED ONE - Progress Progress Note: 10/31/16 17:45 Toradol and sling given here. INSPECT reviewed and she takes chronic norco/ percocet. She was advised needs to see her pain specialist for further pain medications. Advised simple shoulder exercises and warned against prolonged use of sling to prevent frozen shoulder. Counseled pt/family regarding: diagnosis, need for follow-up, rad results - Departure Time of Disposition: 17:46 Departure Disposition: Home Clinical Impression: Left shoulder pain, Chronic pain syndrome Condition: Stable Critical Care Time: No Referrals: DOCTOR,NO FAMILY [Primary Care Provider] - SANDEEP BURK [NON-STAFF PHY W/O PRIVILEGES] - Instructions: Shoulder Sprain Additional Instructions: Take naproxen twice a day. Follow up with your pain specialist next week. Follow up Wednesday with family doctor. Sling left arm but use simple exercises. Do not stay in sling longer than 2 days.
--- NOTE | 2016-10-31 22:51 | XRAY ---
Indication: Pain following fall. Comparison: September 28, 2016. 3 views of the left shoulder unchanged again demonstrating mild AC degenerative arthropathy and left axillary surgical clips. No new/acute findings.
== END 2016-10-31 17:56 | disposition home or self-care (01) ==
LOC: ED 15:50
DX: M25.512 Pain in left shoulder (principal); G89.4 Chronic pain syndrome; W19.XXXA Unspecified fall, initial encounter; I10 Essential (primary) hypertension; Z79.899 Other long term (current) drug therapy; Z85.3 Personal history of malignant neoplasm of breast
CPT/HCPCS: 73030; 96372; 99284; J1885

== ENCOUNTER 2018-11-23 15:12 | Emergency (ER) | payer MEDICARE ==
[2018-11-23] MEDS ORDERED: Zofran 4 MG/2 ML VIAL IV ONE (16:33)
[2018-11-23] MEDS ORDERED: Sodium Chloride 0.9% 1000 ML 1,000 ML IV STA (16:33)
[2018-11-23] MEDS ORDERED: Hydromorphone 1 mg/ml Ampule IV ONE (16:33)
[2018-11-23] MEDS ORDERED: Zofran 4 MG/2 ML VIAL ONE (16:40)
[2018-11-23] MEDS ORDERED: Hydromorphone 1 mg/ml Ampule ONE (16:40)
[2018-11-23] MEDS ORDERED: Sodium Chloride 0.9% 1000 ML 1,000 ML ONE (16:40)
[2018-11-23 16:55] LABS: BASOPHIL % 0.4 % (0.0-0.4); Basophil (Absolute #) 0.03 (0-0.4); Eosinophil % 3.2 % (0.00-5.0); Eosinophil (Absolute #) 0.24 (0-0.5); Granulocytes % 47.9 % (36.0-66.0); Hematocrit 39.4 % (35-47); Hemoglobin 13.4 gm/dl (12.0-16.0); Lymphocyte (Absolute #) 2.92 (1.0-4.6); Lymphocytes % 38.8 % (24.0-44.0); Mean Cell Volume 91.4 fl (78-100); Mean Corpuscular Hemoglobin 31.1 pg (26-32); Mean Platelet Volume 9.9 fl (6-9.5); Monocyte (Absolute #) 0.73 (0.0-1.3); Monocytes % 9.7 % (0.0-12.0); Platelet Count 276 K/mm3 (150-450); Red Blood Count 4.31 M/mm3 (4.1-5.4); White Blood Count 7.5 K/mm3 (4.0-10.5)
[2018-11-23 17:29] LABS: ALBUMIN 3.9 g/dL (3.5-5.0); ALKALINE PHOSPHATASE 71 U/L (38-126); AMYLASE 184 U/L (30-110); ANION GAP 11.7 MEQ/L (5-15); BLOOD UREA NITROGEN 9 mg/dL (7-17); CHLORIDE 104 mmol/L (98-107); Calcium 9.5 mg/dL (8.4-10.2); Carbon Dioxide 29 mmol/L (22-30); Creatinine 1 0.45 mg/dL (0.52-1.04); Glucose 91 mg/dL (74-106); LIPASE 412 U/L (23-300); Potassium 4.3 mmol/L (3.5-5.1); SGOT/AST 19 U/L (14-36); SGPT/ALT 12 U/L (0-35); SODIUM 140 mmol/L (137-145); Total Protein 6.8 g/dL (6.3-8.2)
[2018-11-23 17:57] VITALS: BP 128/81; PULSE 97
[2018-11-23 17:58] LABS: Appearance CLEAR (CLEAR); Bilirubin NEGATIVE (NEGATIVE); Blood SMALL Ery/ul (0-5); Epithelial Cells RARE /HPF (FEW); Glucose NEGATIVE (NEGATIVE); Ketones NEGATIVE (NEGATIVE); Leukocyte Esterase NEGATIVE (NEGATIVE); Nitrite NEGATIVE (NEGATIVE); Protein,Urine Dip NEGATIVE (Negative); Specific Gravity 1.008 (1.005-1.025); Urobilinogen NEGATIVE mg/dL (0-1); WBC 0-2 /HPF (0-5)
--- NOTE | 2018-11-23 18:06 | ERPHSYRPT ---
- History of Present Illness Time Seen by Provider: 11/23/18 16:00 Historian: patient Patient Subjective Stated Complaint: headache with swelling noted to left eye since this morning, complains of itching to left eye. pain to abdomin since wednesday with ruperto and voming and dark stool Triage Nursing Assessment: Patient ambulated into ER complaints of eye swelling and headache, patient states secondardy complaint of abdomin tenderness. patient states she has lost 10 in the last month, patient complains of diarrhea Physician History: 58 y/o white female presents with multiple complaints. pt has chronic mild pancreatitis issues and has an appointment to see a director treasurer on . pt woke up this am and had some swelling around right eye. also has an associated headache. pt has had chronic abd complaints for years. Timing/Duration: today (right eye and headache), intermittent (chronic abd pain) Activities at Onset: none Quality: aching Abdominal Pain Onset Location: generalized abdomen (mild ) Pain Radiation: no radiation Severity of Pain-Max: mild Severity of Pain-Current: mild Modifying Factors: Improves With: other (weight loss 10 pounds). Worsens With: vomiting Previous symptoms: same symptoms as today Allergies/Adverse Reactions: penicillin G Allergy (Intermediate, Verified 11/23/18 16:06) Hives sulfamethoxazole [From Bactrim] Allergy (Intermediate, Verified 11/23/18 16:06) Hives trimethoprim [From Bactrim] Allergy (Intermediate, Verified 11/23/18 16:06) Hives Home Medications: Hydrochlorothiazide 25 mg [hydroDIURIL 25 MG] 12.5 mg PO BID 06/18/16 [ History] Clonazepam 0.5 mg [Klonopin 0.5 MG] 0.5 mg PO HS 07/16/16 [History] Duloxetine HCl [Cymbalta] 60 mg PO TID 07/16/16 [History] Gabapentin [Gralise] 600 mg PO BID 07/16/16 [History] Hx Tetanus, Diphtheria Vaccination/Date Given: No Hx Influenza Vaccination/Date Given: No Hx Pneumococcal Vaccination/Date Given: No Immunizations Up to Date: Yes - Review of Systems Constitutional: No Symptoms Eyes: No Symptoms Ears, Nose, & Throat: No Symptoms Respiratory: No Symptoms Cardiac: No Symptoms Abdominal/Gastrointestinal: Abdominal Pain, Diarrhea, No Nausea, No Vomiting Genitourinary Symptoms: No Symptoms Musculoskeletal: No Symptoms Skin: Other (mild swelling around right eye) Neurological: No Symptoms Psychological: No Symptoms Endocrine: No Symptoms Hematologic/Lymphatic: No Symptoms Immunological/Allergic: No Symptoms All Other Systems: Reviewed and Negative - Past Medical History Pertinent Past Medical History: Yes Neurological History: No Pertinent History ENT History: No Pertinent History Cardiac History: Hypertension Respiratory History: No Pertinent History Endocrine Medical History: No Pertinent History Musculoskeletal History: No Pertinent History, Other GI Medical History: Gallbladder Disease, Irritable Bowel History: No Pertinent History Psycho-Social History: Anxiety, Depression Female Reproductive Disorders: Breast Cancer - Past Surgical History Past Surgical History: Yes Neuro Surgical History: No Pertinent History Cardiac: No Pertinent History Respiratory: No Pertinent History Gastrointestinal: Cholecystectomy Genitourinary: No Pertinent History Musculoskeletal: No Pertinent History Female Surgical History: Tubal Ligation, Lumpectomy - Social History Smoking Status: Current every day smoker How long have you smoked: 30 Exposure to second hand smoke: No Drug Use: none Patient Lives Alone: No - Female History Hx Last Menstrual Period: 2007 Hx Now: No - Nursing Vital Signs Nursing Vital Signs: Initial Vital Signs Temperature 99.2 F 11/23/18 15:52 Pulse Rate 110 H 11/23/18 15:52 Respiratory Rate 22 11/23/18 15:52 Blood Pressure 163/99 11/23/18 15:52 O2 Sat by Pulse Oximetry 99 11/23/18 15:52 Pain Scale Pain Intensity 2 - Physical Exam General Appearance: no apparent distress, alert, anxiety Eye Exam: PERRL/EOMI, other (mild swelling around right eye) Neck Exam: normal inspection, non-tender, supple, full range of motion Respiratory Exam: normal breath sounds, lungs clear, airway intact, No chest tenderness, No respiratory distress Cardiovascular Exam: tachycardia Gastrointestinal/Abdomen Exam: soft, normal bowel sounds, No tenderness, No guarding, No rebound Pelvic Exam: not done Rectal Exam: not done Back Exam: normal inspection, normal range of motion, No CVA tenderness, No vertebral tenderness Extremity Exam: normal inspection, normal range of motion, pelvis stable Neurologic Exam: alert, oriented x 3, cooperative, framer II-XII nml as tested, nml cerebellar function, other (anxious) Skin Exam: normal color, warm, dry Lymphatic Exam: No adenopathy SpO2 Interpretation: borderline oxygenation SpO2: 92 O2 Delivery: Room Air - Course Nursing assessment & vital signs reviewed: Yes Ordered Tests: Active Orders 24 hr Category Date Time Status IV Insertion STAT Care 11/23/18 16:33 Active AMYLASE Stat Lab 11/23/18 16:50 Completed CBC W DIFF Stat Lab 11/23/18 16:33 Completed CMP Stat Lab 11/23/18 16:50 Completed LIPASE Stat Lab 11/23/18 16:50 Completed Lactic Acid Stat Lab 11/23/18 16:58 Completed UA W/RFX UR CULTURE Stat Lab 11/23/18 17:27 Completed Medication Summary Discontinued Medications Generic Name Dose Route Start Last Admin Trade Name Freq PRN Reason Stop Dose Admin Hydromorphone HCl 1 mg 11/23/18 16:33 11/23/18 16:56 Hydromorphone 1 Mg/Ml Ampule IV 11/23/18 16:34 1 mg STAT ONE Administration Hydromorphone HCl Confirm 11/23/18 16:40 Hydromorphone 1 Mg/Ml Ampule Administered 11/23/18 16:41 Dose 1 mg .ROUTE .STK-MED ONE Sodium Chloride 1,000 mls @ 999 mls/hr 11/23/18 16:33 11/23/18 16:54 Sodium Chloride 0.9% 1000 Ml IV 11/23/18 17:33 999 mls/hr .Q1H1M STA Administration Sodium Chloride Confirm 11/23/18 16:40 Sodium Chloride 0.9% 1000 Ml Administered 11/23/18 16:41 Dose 1,000 mls @ ud .ROUTE .STK-MED ONE Methylprednisolone Sodium Succinate 125 mg 11/23/18 18:10 11/23/18 18:23 Solu-Medrol 125 Mg IV 11/23/18 18:11 125 mg STAT ONE Administration Methylprednisolone Sodium Succinate Confirm 11/23/18 18:14 Solu-Medrol 125 Mg Administered 11/23/18 18:15 Dose 125 mg .ROUTE .STK-MED ONE Ondansetron HCl 4 mg 11/23/18 16:33 11/23/18 16:55 Zofran 4 Mg/2 Ml Vial IV 11/23/18 16:34 4 mg STAT ONE Administration Ondansetron HCl Confirm 11/23/18 16:40 Zofran 4 Mg/2 Ml Vial Administered 11/23/18 16:41 Dose 4 mg .ROUTE .STK-MED ONE Lab/Rad Data: Laboratory Result Diagrams 11/23/18 16:33 11/23/18 16:50 Laboratory Results 11/23/18 11/23/18 11/23/18 Range/Units 17:27 16:58 16:50 WBC (4.0-10.5) K/mm3 RBC (4.1-5.4) M/mm3 Hgb (12.0-16.0) gm/dl Hct (35-47) % MCV (78-100) fl MCH (26-32) pg MCHC (32-36) g/dl RDW (11.5-14.0) % Plt Count (150-450) K/mm3 MPV (6-9.5) fl Gran % (36.0-66.0) % Eos # (Auto) (0-0.5) Absolute Lymphs (auto) (1.0-4.6) Absolute Monos (auto) (0.0-1.3) Lymphocytes % (24.0-44.0) % Monocytes % (0.0-12.0) % Eosinophils % (0.00-5.0) % Basophils % (0.0-0.4) % Absolute Granulocytes (1.4-6.9) Basophils # (0-0.4) Sodium 140 (137-145) mmol/L Potassium 4.3 (3.5-5.1) mmol/L Chloride 104 (98-107) mmol/L Carbon Dioxide 29 (22-30) mmol/L Anion Gap 11.7 (5-15) MEQ/L BUN 9 (7-17) mg/dL Creatinine 0.45 L (0.52-1.04) mg/dL Estimated GFR > 60.0 ML/MIN Glucose 91 (74-106) mg/dL Lactic Acid 1.3 (0.4-2.0) Calcium 9.5 (8.4-10.2) mg/dL Total Bilirubin 0.40 (0.2-1.3) mg/dL AST 19 (14-36) U/L ALT 12 (0-35) U/L Alkaline Phosphatase 71 (38-126) U/L Serum Total Protein 6.8 (6.3-8.2) g/dL Albumin 3.9 (3.5-5.0) g/dL Amylase 184 H (30-110) U/L Lipase 412 H (23-300) U/L Urine Color YELLOW (YELLOW) Urine Appearance CLEAR (CLEAR) Urine pH 6.0 (5-6) Ur Specific [place] 1.008 (1.005-1.025) Urine Protein NEGATIVE (Negative) Urine Ketones NEGATIVE (NEGATIVE) Urine Blood SMALL (0-5) Ruben/ul Urine Nitrite NEGATIVE (NEGATIVE) Urine Bilirubin NEGATIVE (NEGATIVE) Urine Urobilinogen NEGATIVE (0-1) mg/dL Ur Leukocyte Esterase NEGATIVE (NEGATIVE) Urine WBC (Auto) 0-2 (0-5) /HPF Urine RBC (Auto) NONE (0-2) /HPF U Epithel Cells (Auto) RARE (FEW) /HPF Urine Bacteria (Auto) NONE (NEGATIVE) /HPF Urine Culture Reflexed NO (NO) Urine Glucose NEGATIVE (NEGATIVE) mg/dL 11/23/18 Range/Units 16:33 WBC 7.5 (4.0-10.5) K/mm3 RBC 4.31 (4.1-5.4) M/mm3 Hgb 13.4 (12.0-16.0) gm/dl Hct 39.4 (35-47) % MCV 91.4 (78-100) fl MCH 31.1 (26-32) pg MCHC 34.0 (32-36) g/dl RDW 13.0 (11.5-14.0) % Plt Count 276 (150-450) K/mm3 MPV 9.9 H (6-9.5) fl Gran % 47.9 (36.0-66.0) % Eos # (Auto) 0.24 (0-0.5) Absolute Lymphs (auto) 2.92 (1.0-4.6) Absolute Monos (auto) 0.73 (0.0-1.3) Lymphocytes % 38.8 (24.0-44.0) % Monocytes % 9.7 (0.0-12.0) % Eosinophils % 3.2 (0.00-5.0) % Basophils % 0.4 (0.0-0.4) % Absolute Granulocytes 3.60 (1.4-6.9) Basophils # 0.03 (0-0.4) Sodium (137-145) mmol/L Potassium (3.5-5.1) mmol/L Chloride (98-107) mmol/L Carbon Dioxide (22-30) mmol/L Anion Gap (5-15) MEQ/L BUN (7-17) mg/dL Creatinine (0.52-1.04) mg/dL Estimated GFR ML/MIN Glucose (74-106) mg/dL Lactic Acid (0.4-2.0) Calcium (8.4-10.2) mg/dL Total Bilirubin (0.2-1.3) mg/dL AST (14-36) U/L ALT (0-35) U/L Alkaline Phosphatase (38-126) U/L Serum Total Protein (6.3-8.2) g/dL Albumin (3.5-5.0) g/dL Amylase (30-110) U/L Lipase (23-300) U/L Urine Color (YELLOW) Urine Appearance (CLEAR) Urine pH (5-6) Ur Specific [place] (1.005-1.025) Urine Protein (Negative) Urine Ketones (NEGATIVE) Urine Blood (0-5) Ruben/ul Urine Nitrite (NEGATIVE) Urine Bilirubin (NEGATIVE) Urine Urobilinogen (0-1) mg/dL Ur Leukocyte Esterase (NEGATIVE) Urine WBC (Auto) (0-5) /HPF Urine RBC (Auto) (0-2) /HPF U Epithel Cells (Auto) (FEW) /HPF Urine Bacteria (Auto) (NEGATIVE) /HPF Urine Culture Reflexed (NO) Urine Glucose (NEGATIVE) mg/dL - Progress Progress: improved Counseled pt/family regarding: lab results, diagnosis, need for follow-up - Departure Departure Disposition: Home Clinical Impression: Cellulitis, Pancreatitis, chronic Condition: Stable Critical Care Time: No Referrals: VANESSA WILLOUGHBY [Primary Care Provider] - Additional Instructions: avoid fatty, greasy spicy foods. follow up with primary doctor tomorrow for further management. keep your appointment with the director treasurer Prescriptions: Azithromycin 250 mg [Zithromax 250 MG TABLET] 250 mg PO ZPACK #6 tablet Prednisone 10 mg [Deltasone 10 mg] 10 mg PO TID #6 tablet
[2018-11-23] MEDS ORDERED: solu-MEDROL 125 MG IV ONE (18:10)
[2018-11-23] MEDS ORDERED: solu-MEDROL 125 MG ONE (18:14)
[2018-11-23 19:05] VITALS: O2SAT 98
== END 2018-11-23 19:05 | disposition home or self-care (01) ==
LOC: ED 15:12
DX: L03.90 Cellulitis, unspecified (principal); K86.1 Other chronic pancreatitis; R51 Headache; R11.2 Nausea with vomiting, unspecified; R10.9 Unspecified abdominal pain; H57.89 Other specified disorders of eye and adnexa; R19.5 Other fecal abnormalities; Z79.899 Other long term (current) drug therapy; R19.7 Diarrhea, unspecified; I10 Essential (primary) hypertension; K58.9 Irritable bowel syndrome, unspecified
CPT/HCPCS: 36000; 36415; 80053; 81001; 82150; 83605; 83690; 85025; 96360; 96374; 96375; 99284; J1170; J2405; J2930

== ENCOUNTER 2019-02-18 15:15 | Emergency (ER) | payer MEDICARE ==
[2019-02-18 16:18] VITALS: BP 119/85; PULSE 116; O2SAT 94
--- NOTE | 2019-02-18 16:36 | ERPHSYRPT ---
- History of Present Illness Source: patient Exam Limitations: no limitations Patient Subjective Stated Complaint: pt reports wasp sting on 02/16/19, states the swelling has not decreased since the incident. Triage Nursing Assessment: pt is aox3, pupils perrl, afebrile, resps easy and non labored, radial pulses strong and equal, cap refill < 3 seconds, pt skin pink warm dry. swelling noted to the dorsal left hand, skin is intact. ROM and sensation intact. Physician History: Pt is a 58 y/o female that was stung by a wasp on . As her L hand was still swollen today, she decided to come to the ER, to "get a shot". Pt states , no problem breathing, no itching or redness. The hand s still swollen but is not painful. Timing/Duration: day(s) Severity: mild Location: hands (On left) Possible Causes: insect sting Modifying Factors: Improves With: antihistamine Associated Symptoms: edema Allergies/Adverse Reactions: penicillin G Allergy (Intermediate, Verified 02/18/19 15:34) Hives sulfamethoxazole [From Bactrim] Allergy (Intermediate, Verified 02/18/19 15:34) Hives trimethoprim [From Bactrim] Allergy (Intermediate, Verified 02/18/19 15:34) Hives Home Medications: Hydrochlorothiazide 25 mg [hydroDIURIL 25 MG] 12.5 mg PO BID 06/18/16 [ History] Clonazepam 0.5 mg [Klonopin 0.5 MG] 0.5 mg PO HS 07/16/16 [History] Duloxetine HCl [Cymbalta] 60 mg PO TID 07/16/16 [History] Gabapentin [Gralise] 600 mg PO BID 07/16/16 [History] Hx Tetanus, Diphtheria Vaccination/Date Given: (unk) Hx Influenza Vaccination/Date Given: No Hx Pneumococcal Vaccination/Date Given: No Immunizations Up to Date: Yes - Review of Systems Constitutional: No Fever, No Chills Eyes: No Symptoms Ears, Nose, & Throat: No Symptoms Respiratory: No Cough, No Dyspnea Cardiac: No Chest Pain, No Edema, No Syncope Abdominal/Gastrointestinal: No Abdominal Pain, No Nausea, No Vomiting, No Diarrhea Musculoskeletal: No Back Pain, No Neck Pain Skin: Other (edema of the L hand) - Past Medical History Pertinent Past Medical History: Yes Neurological History: No Pertinent History ENT History: No Pertinent History Cardiac History: Hypertension Respiratory History: No Pertinent History Endocrine Medical History: No Pertinent History Musculoskeletal History: No Pertinent History, Other GI Medical History: Gallbladder Disease, Irritable Bowel History: No Pertinent History Psycho-Social History: Anxiety, Depression Female Reproductive Disorders: Breast Cancer - Past Surgical History Past Surgical History: Yes Neuro Surgical History: No Pertinent History Cardiac: No Pertinent History Respiratory: No Pertinent History Gastrointestinal: Cholecystectomy Genitourinary: No Pertinent History Musculoskeletal: No Pertinent History Female Surgical History: Tubal Ligation, Lumpectomy - Social History Smoking Status: Current every day smoker How long have you smoked: 30 Exposure to second hand smoke: No Drug Use: none Patient Lives Alone: No - Female History Hx Now: No - Nursing Vital Signs Nursing Vital Signs: Initial Vital Signs Temperature 99.0 F 02/18/19 15:25 Pulse Rate 110 H 02/18/19 15:25 Respiratory Rate 18 02/18/19 15:25 Blood Pressure 127/94 02/18/19 15:25 O2 Sat by Pulse Oximetry 98 02/18/19 15:25 Pain Scale Pain Intensity 5 - Physical Exam General Appearance: no apparent distress, alert Eye Exam: PERRL/EOMI, eyes nml inspection Ears, Nose, Throat Exam: normal ENT inspection, pharynx normal, moist mucous membranes Neck Exam: normal inspection, non-tender, supple, full range of motion Respiratory Exam: normal breath sounds, lungs clear, No respiratory distress Cardiovascular Exam: regular rate/rhythm, normal heart sounds Skin Exam: other (edema of the L hand) SpO2: 94 - Course Nursing assessment & vital signs reviewed: Yes - Progress Progress: unchanged Progress Note: 02/18/19 16:33 Pt was seen and examined. She had no erythema, or itching. No change in breathing, or swelling of the face. Her vitas were stable, and pt was stung on . Pt was reassured, and was told to elevate her hand, ice it and get OTC meds for allergy. At this point she does not need any steroids. Pt should f/u with her PCP. Will see patient in: other Counseled pt/family regarding: need for follow-up - Departure Departure Disposition: AMA Clinical Impression: Wasp sting Condition: Stable Critical Care Time: No Referrals: VANESSA WILLOUGHBY [Primary Care Provider] - Additional Instructions: Pt was instructed to elevate her hand, ice it and use OTC meds for allergy. Pt should f/u with PCP.
== END 2019-02-18 16:05 | disposition left against medical advice (07) ==
LOC: ED 15:15
DX: T63.461A Toxic effect of venom of wasps, accidental (unintentional), initial encounter (principal); M79.89 Other specified soft tissue disorders
CPT/HCPCS: 99283